=== PATIENT | female | born 1990 | race Caucasian/White ===

== ENCOUNTER 2017-05-29 20:46 | Emergency (ER) | payer BC ==
[~2017-05-29] VITALS: Ht 167.6 cm; Wt 56.0 kg
[2017-05-29 20:50] VITALS: BP 149/98
== END 2017-05-29 22:19 | disposition home or self-care (01) ==
LOC: EME 20:46
PROC: 0HQGXZZ Repair Left Hand Skin, External Approach (ICD-10-PCS; principal; 2017-05-29)
DX: S61.412A Laceration without foreign body of left hand, initial encounter (principal); W20.8XXA Other cause of strike by thrown, projected or falling object, initial encounter; Z88.0 Allergy status to penicillin
CPT/HCPCS: 99281; 99283